=== PATIENT | male | born 1955 | race Caucasian/White ===

== ENCOUNTER 2024-09-16 04:35 | Day surgery (SDC) | payer OTHER ==
[2024-09-14 14:00] VITALS: BMI 19.3
[2024-09-16 08:39] LABS: BASO % 1.1 % (0-2.0); HEMATOCRIT 41.4 % (35.4-49); HEMOGLOBIN 14.2 GM/dL (11.7-16.9); LYMPH % 25.1 % (8-40); MCHC 34.4 g/dl (32.0-35.9); MEAN PLT VOLUME 6.6 fl (7.5-11.1); NEUT % 59.8 % (42.8-82.8); PLATELET COUNT 318 10^3/uL (134-434); RBC 4.45 M/mm3 (4.00-5.60); RDW 14.2 % (11.9-15.9); WHITE BLOOD COUNT 5.5 K/mm3 (4.0-10.0)
[2024-09-16 08:43] LABS: INR 0.99 (0.83-1.09); PROTHROMBIN TIME (PATIENT) 11.4 SEC (9.7-13.0)
[2024-09-16] MEDS ORDERED: FENTANYL CITRATE/PF 50 MCG/ML VIAL ONE ×2 (10:18→11:01)
[2024-09-16] MEDS ORDERED: MIDAZOLAM HCL 2 MG/2 ML SINGLE DOSE VIAL ONE (10:18)
[2024-09-16] MEDS: FENTANYL CITRATE/PF 50 MCG/ML VIAL IVPUSH ONE ×2 (10:48→11:04)
[2024-09-16] MEDS: MIDAZOLAM HCL 2 MG/2 ML SINGLE DOSE VIAL IVPUSH ONE ×2 (10:49→11:04)
[2024-09-16 11:54] VITALS: RESP 16
[2024-09-16 12:53] VITALS: BP 130/70; PULSE 59; TEMP 97.6
== END 2024-09-16 13:11 | disposition home or self-care (01) ==
LOC: JRADIR 04:35
PROVIDERS: ATTEND Internal Medicine Hematology & Oncology
PROC: 02HV33Z Insertion of Infusion Device into Superior Vena Cava, Percutaneous Approach (ICD-10-PCS; principal; 2024-09-16)
DX: C34.90 Malignant neoplasm of unspecified part of unspecified bronchus or lung (principal)
CPT/HCPCS: 36415; 36561; 85025; 85610

== ENCOUNTER 2024-09-19 10:11 | Day surgery (SDC) | payer OTHER ==
[2024-09-19 10:38] LABS: BASO % 0.7 % (0-2.0); EOS % 2.2 % (0-4.5); HEMATOCRIT 41.5 % (35.4-49); HEMOGLOBIN 14.2 GM/dL (11.7-16.9); LYMPH % 19.9 % (8-40); MCH 31.9 pg (25.7-33.7); MCHC 34.2 g/dl (32.0-35.9); MEAN CELL VOLUME 93.2 fl (80-96); MEAN PLT VOLUME 6.9 fl (7.5-11.1); MONO % 10.1 % (3.8-10.2); NEUT % 67.1 % (42.8-82.8); PLATELET COUNT 294 10^3/uL (134-434); RBC 4.45 M/mm3 (4.00-5.60); RDW 14.1 % (11.9-15.9); WHITE BLOOD COUNT 6.8 K/mm3 (4.0-10.0)
[2024-09-19 10:59] LABS: POTASSIUM 4.1 mmol/L (3.5-5.1)
[2024-09-19 11:01] LABS: CALCIUM 9.4 mg/dL (8.5-10.1)
[2024-09-19 11:02] LABS: ALBUMIN 3.6 g/dl (3.4-5.0); BLOOD UREA NITROGEN 26.3 mg/dL (7-18); MAGNESIUM 2.1 mg/dL (1.8-2.4)
[2024-09-19 11:05] LABS: CREATININE 0.6 mg/dL (0.55-1.3)
[2024-09-19 11:07] LABS: BILIRUBIN,TOTAL 0.4 mg/dL (0.2-1); TOT PROT 7.6 g/dl (6.4-8.2)
[2024-09-19] MEDS ORDERED: DEXAMETHASONE SOD PHOSPHATE 20 MG/5 ML VIAL IVPB ONE (11:28)
[2024-09-19] MEDS: LIDOCAINE 2.5%/PRILOCAINE 2.5% 30 GRAM TUBE TP ONE (11:30)
[2024-09-19] MEDS ORDERED: SODIUM CHLORIDE IVPB ONE (11:30)
[2024-09-19] MEDS ORDERED: CARBOPLATIN IVPB ONE (11:30)
[2024-09-19] MEDS: FOSAPREPITANT DIMEGLUMINE 150 MG in SODIUM CHLORIDE 145 ML IVPB ONE (11:52)
[2024-09-19] MEDS: DEXAMETHASONE SODIUM PHOSPHATE 10 MG in DEXTROSE 5%-WATER - 50 ML IVPB ONE (12:29)
[2024-09-19] MEDS: GRANISETRON HCL/PF 1 MG in SODIUM CHLORIDE 50 ML IVPB ONE (12:49)
[2024-09-19] MEDS: ETOPOSIDE 160 MG in SODIUM CHLORIDE 0.9% 500 ML IV ONE (13:06)
[2024-09-19] MEDS ORDERED: PORTA CATH FLUSH 10 ML IVPUSH PRN (16:13)
[2024-09-19 16:22] VITALS: BP 131/72; PULSE 66; RESP 18; TEMP 97.3
== END 2024-09-19 14:00 | disposition home or self-care (01) ==
LOC: JONCCHEMO 10:11 → J7W 10:11 → JONCCHEMO 14:00
PROVIDERS: ATTEND Internal Medicine Hematology & Oncology
DX: Z51.11 Encounter for antineoplastic chemotherapy (principal); C34.90 Malignant neoplasm of unspecified part of unspecified bronchus or lung
CPT/HCPCS: 36415; 80053; 82150; 82533; 82728; 82962; 83540; 83550; 83690; 83735; 84439; 84443; 85025; 96367; 96375; 96413; J1453

== ENCOUNTER 2024-09-19 13:34 | Observation (INO) | payer OTHER ==
[2024-09-19] MEDS ORDERED: ACETAMINOPHEN INJECTION 100 ML ONE (14:36)
[2024-09-19 14:40] LABS: VENOUS BASE EXCESS -0.8 mmol/L (-2-2); VENOUS O2 SATURATION 59.8 % (70-80); VENOUS PCO2 41.9 mmHg (38-52); VENOUS PH 7.381 (7.310-7.410)
[2024-09-19] MEDS: ACETAMINOPHEN 1000 MG/100 ML BAG IVPB ONE (14:40)
[2024-09-19 14:41] LABS: BASO % 0.6 % (0-2.0); EOS % 0.7 % (0-4.5); HEMATOCRIT 38.2 % (35.4-49); HEMOGLOBIN 13.1 GM/dL (11.7-16.9); MCH 32.1 pg (25.7-33.7); MCHC 34.4 g/dl (32.0-35.9); MEAN CELL VOLUME 93.3 fl (80-96); MEAN PLT VOLUME 6.6 fl (7.5-11.1); NEUT % 85.7 % (42.8-82.8); PLATELET COUNT 260 10^3/uL (134-434); RBC 4.09 M/mm3 (4.00-5.60); RDW 14.2 % (11.9-15.9); WHITE BLOOD COUNT 7.4 K/mm3 (4.0-10.0)
[2024-09-19 15:12] LABS: POTASSIUM 4.2 mmol/L (3.5-5.1)
[2024-09-19 15:15] LABS: ALBUMIN 3.3 g/dl (3.4-5.0); BLOOD UREA NITROGEN 26.4 mg/dL (7-18); CALCIUM 8.4 mg/dL (8.5-10.1)
[2024-09-19 15:16] LABS: MAGNESIUM 2.1 mg/dL (1.8-2.4)
[2024-09-19 15:18] LABS: CREATININE 0.6 mg/dL (0.55-1.3)
[2024-09-19 15:20] LABS: BILIRUBIN,TOTAL 0.3 mg/dL (0.2-1); TOT PROT 6.7 g/dl (6.4-8.2)
[2024-09-19] MEDS ORDERED: ACETAMINOPHEN 325 MG TABLET (FP) PO PRN (19:30)
[2024-09-19] MEDS ORDERED: ACETAMINOPHEN 1000 MG/100 ML BAG IVPB PRN (19:35)
[2024-09-20] MEDS: SODIUM CHLORIDE 1,000 ML IV SCH (00:05)
[2024-09-20] MEDS: MIRTAZAPINE 15 MG TABLET (FP) PO SCH (00:56)
[2024-09-20 06:02] VITALS: RESP 18
[2024-09-20] MEDS: SODIUM CHLORIDE 1 GM TABLET PO SCH (06:21)
[2024-09-20 07:51] LABS: INR 1.1 (0.83-1.09); PROTHROMBIN TIME (PATIENT) 12.4 SEC (9.7-13.0)
[2024-09-20 07:54] LABS: ACTIVATED PTT 32.3 SECONDS (25.2-36.5)
[2024-09-20 08:00] LABS: HEMATOCRIT 35.1 % (35.4-49); LYMPH % 9.6 % (8-40); MCH 31.9 pg (25.7-33.7); MCHC 34.3 g/dl (32.0-35.9); MEAN CELL VOLUME 93.1 fl (80-96); MEAN PLT VOLUME 7.4 fl (7.5-11.1); MONO % 2.8 % (3.8-10.2); NEUT % 87.6 % (42.8-82.8); PLATELET COUNT 240 10^3/uL (134-434); RBC 3.77 M/mm3 (4.00-5.60); WHITE BLOOD COUNT 7.9 K/mm3 (4.0-10.0)
[2024-09-20 08:04] LABS: POTASSIUM 4.2 mmol/L (3.5-5.1)
[2024-09-20 08:08] LABS: BLOOD UREA NITROGEN 26.2 mg/dL (7-18); CALCIUM 8.4 mg/dL (8.5-10.1)
[2024-09-20 08:11] LABS: CREATININE 0.5 mg/dL (0.55-1.3)
[2024-09-20] MEDS: PANTOPRAZOLE 40 MG TABLET PO SCH (09:52)
[2024-09-20] MEDS: FOLIC ACID 1 MG TABLET (FP) PO SCH (09:52)
[2024-09-20 13:24] VITALS: BMI 19.2
[2024-09-20] MEDS: CYANOCOBALAMIN (VITAMIN B-12) 100 MCG TABLET PO SCH (17:26)
[2024-09-20] MEDS: PORTA CATH FLUSH 10 ML IVPUSH PRN (17:48)
[2024-09-20] MEDS ORDERED: ACETAMINOPHEN 325 MG TABLET (FP) PO PRN (19:30)
[2024-09-20] MEDS: DOCUSATE SODIUM 100 MG CAPSULE (FP) PO PRN (21:58)
[2024-09-21 08:39] LABS: BASO % 0.6 % (0-2.0); EOS % 1.2 % (0-4.5); HEMATOCRIT 33.6 % (35.4-49); HEMOGLOBIN 11.5 GM/dL (11.7-16.9); LYMPH % 21.3 % (8-40); MCH 31.9 pg (25.7-33.7); MCHC 34.3 g/dl (32.0-35.9); MEAN CELL VOLUME 92.9 fl (80-96); MEAN PLT VOLUME 7.8 fl (7.5-11.1); MONO % 8.5 % (3.8-10.2); NEUT % 68.4 % (42.8-82.8); PLATELET COUNT 231 10^3/uL (134-434); RBC 3.62 M/mm3 (4.00-5.60); RDW 13.6 % (11.9-15.9); WHITE BLOOD COUNT 8.7 K/mm3 (4.0-10.0)
[2024-09-21 09:06] LABS: POTASSIUM 4.2 mmol/L (3.5-5.1)
[2024-09-21 09:21] LABS: CALCIUM 8.6 mg/dL (8.5-10.1)
[2024-09-21 09:22] LABS: BILIRUBIN,TOTAL 0.3 mg/dL (0.2-1); CREATININE 0.4 mg/dL (0.55-1.3)
[2024-09-21] MEDS: MULTIVITAMINS THER W-MINERALS COMBO TABLET (FP) PO SCH (09:58)
[2024-09-21 15:11] VITALS: BP 125/69; PULSE 75; TEMP 97.5
== END 2024-09-21 16:12 | disposition home or self-care (01) ==
LOC: JER 13:34 → UNDOADMOB 16:52 → INTOOBSV 16:52 → JERBED 16:52 → J4W 20:21
PROVIDERS: ADMIT Internal Medicine; ATTEND Internal Medicine
PROC: 3E033NZ Introduction of Analgesics, Hypnotics, Sedatives into Peripheral Vein, Percutaneous Approach (ICD-10-PCS; principal; 2024-09-19)
PROC: 3E033GC Introduction of Other Therapeutic Substance into Peripheral Vein, Percutaneous Approach (ICD-10-PCS; 2024-09-19)
DX: R07.9 Chest pain, unspecified (principal); E87.1 Hypo-osmolality and hyponatremia; F39 Unspecified mood [affective] disorder; J44.9 Chronic obstructive pulmonary disease, unspecified; C34.90 Malignant neoplasm of unspecified part of unspecified bronchus or lung; Z79.899 Other long term (current) drug therapy; A31.0 Pulmonary mycobacterial infection; F17.210 Nicotine dependence, cigarettes, uncomplicated
CPT/HCPCS: 36415; 71045-TC-FY; 80048; 80053; 82803; 83605; 83690; 83735; 83880; 84443; 84484; 85025; 85610; 85730; 93306-TC; 93308; 96374; 96375; 99285-25; G0378; J0131

== ENCOUNTER 2024-10-07 10:45 | Day surgery (SDC) | payer MEDICARE, OTHER ==
[2024-10-07] MEDS: PEGFILGRASTIM-CBQV (UDENYCA) 6 MG/0.6 ML SYRINGE SQ ONE (11:23)
[2024-10-07 16:45] VITALS: BP 112/64; PULSE 72; RESP 18; TEMP 98.1
== END 2024-10-07 11:50 | disposition home or self-care (01) ==
LOC: JONCCHEMO 10:45 → J7W 10:47 → JONCCHEMO 11:50
PROVIDERS: ATTEND Internal Medicine Hematology & Oncology
PROC: 3E013GC Introduction of Other Therapeutic Substance into Subcutaneous Tissue, Percutaneous Approach (ICD-10-PCS; principal; 2024-10-07)
DX: E87.1 Hypo-osmolality and hyponatremia (principal); C34.90 Malignant neoplasm of unspecified part of unspecified bronchus or lung
CPT/HCPCS: 96372; Q5111

== ENCOUNTER 2024-10-25 09:50 | Day surgery (SDC) | payer MEDICARE, OTHER ==
[2024-10-25 10:16] LABS: BASO % 0.7 % (0-2.0); HEMATOCRIT 40.3 % (35.4-49); HEMOGLOBIN 13.4 GM/dL (11.7-16.9); LYMPH % 16.3 % (8-40); MCH 31.1 pg (25.7-33.7); MCHC 33.1 g/dl (32.0-35.9); MEAN CELL VOLUME 93.9 fl (80-96); MEAN PLT VOLUME 7.5 fl (7.5-11.1); MONO % 12.1 % (3.8-10.2); NEUT % 69.9 % (42.8-82.8); PLATELET COUNT 194 10^3/uL (134-434); RBC 4.29 M/mm3 (4.00-5.60); RDW 14.7 % (11.9-15.9); WHITE BLOOD COUNT 6.6 K/mm3 (4.0-10.0)
[2024-10-25 11:10] LABS: CALCIUM 9.5 mg/dL (8.5-10.1)
[2024-10-25 11:11] LABS: ALBUMIN 3.5 g/dl (3.4-5.0)
[2024-10-25 11:14] LABS: CREATININE 0.7 mg/dL (0.55-1.3)
[2024-10-25 11:16] LABS: BILIRUBIN,TOTAL 0.3 mg/dL (0.2-1); TOT PROT 7.2 g/dl (6.4-8.2)
[2024-10-25] MEDS: FAMOTIDINE 20 MG/50 ML IVPB 20 MG/50 ML MG IVPB ONE (11:32)
[2024-10-25] MEDS: DEXAMETHASONE SODIUM PHOSPHATE 10 MG, DIPHENHYDRAMINE 25 MG, ONDANSETRON INJECTION 8 MG... IVPB ONE (12:05)
[2024-10-25] MEDS: SODIUM CHLORIDE IV ONE ×2 (12:50→13:31)
[2024-10-25] MEDS: CARBOPLATIN IV ONE (12:50)
[2024-10-25] MEDS: ETOPOSIDE IV ONE (13:31)
[2024-10-25 18:27] VITALS: BP 111/60; PULSE 76; RESP 20; TEMP 98.2
== END 2024-10-25 16:00 | disposition home or self-care (01) ==
LOC: JONCCHEMO 09:50 → J7W 09:52 → JONCCHEMO 16:00
PROVIDERS: ATTEND Internal Medicine Hematology & Oncology
DX: Z51.11 Encounter for antineoplastic chemotherapy (principal); C34.90 Malignant neoplasm of unspecified part of unspecified bronchus or lung
CPT/HCPCS: 36415; 80053; 82150; 82533; 83690; 83735; 84439; 84443; 85025; 96367; 96413; 96415; 96417; J2405

== ENCOUNTER 2024-10-26 08:47 | Day surgery (SDC) | payer MEDICARE, OTHER ==
[2024-10-26] MEDS: ONDANSETRON INJECTION 8 MG, DIPHENHYDRAMINE 25 MG in SODIUM CHLORIDE 100 ML IVPB ONE (09:50)
[2024-10-26] MEDS: FAMOTIDINE 20 MG/50 ML IVPB 20 MG/50 ML MG IVPB ONE (10:10)
[2024-10-26] MEDS: ATEZOLIZUMAB 1,200 MG in SODIUM CHLORIDE 250 ML IV ONE (11:06)
[2024-10-26] MEDS: ETOPOSIDE IV ONE (12:44)
[2024-10-26] MEDS: SODIUM CHLORIDE IV ONE (12:44)
[2024-10-26 16:48] VITALS: BP 119/72; PULSE 61; RESP 20; TEMP 97.7
== END 2024-10-26 15:10 | disposition home or self-care (01) ==
LOC: JONCCHEMO 08:47 → J7W 08:48 → JONCCHEMO 15:10
PROVIDERS: ATTEND Internal Medicine Hematology & Oncology
DX: Z51.11 Encounter for antineoplastic chemotherapy (principal); C34.90 Malignant neoplasm of unspecified part of unspecified bronchus or lung
CPT/HCPCS: 96367; 96375; 96413; 96415; 96417; J2405; J9022

== ENCOUNTER 2024-10-27 08:50 | Day surgery (SDC) | payer MEDICARE, OTHER ==
[2024-10-27] MEDS: ONDANSETRON INJECTION 8 MG, DIPHENHYDRAMINE 25 MG in SODIUM CHLORIDE 100 ML IVPB ONE (09:15)
[2024-10-27] MEDS: FAMOTIDINE 20 MG/50 ML IVPB 20 MG/50 ML MG IVPB ONE (09:51)
[2024-10-27] MEDS: ETOPOSIDE IV ONE (10:28)
[2024-10-27] MEDS: SODIUM CHLORIDE IV ONE (10:28)
[2024-10-27 12:53] VITALS: RESP 20; TEMP 97.8
[2024-10-27 15:57] VITALS: BP 96/49; PULSE 65
== END 2024-10-27 12:45 | disposition home or self-care (01) ==
LOC: JONCCHEMO 08:50 → J7W 08:50 → JONCCHEMO 12:45
PROVIDERS: ATTEND Internal Medicine Hematology & Oncology
DX: Z51.11 Encounter for antineoplastic chemotherapy (principal); C34.90 Malignant neoplasm of unspecified part of unspecified bronchus or lung
CPT/HCPCS: 96367; 96413; 96415; J2405

== ENCOUNTER 2024-10-28 09:46 | Day surgery (SDC) | payer MEDICARE, OTHER ==
[2024-10-28] MEDS: PEGFILGRASTIM-CBQV (UDENYCA) 6 MG/0.6 ML SYRINGE SQ ONE (09:54)
[2024-10-28 15:43] VITALS: BP 102/48; PULSE 71; RESP 20; TEMP 97.6
== END 2024-10-28 10:10 | disposition home or self-care (01) ==
LOC: J7W 09:46 → JONCCHEMO 09:46
PROVIDERS: ATTEND Internal Medicine Hematology & Oncology
PROC: 3E013GC Introduction of Other Therapeutic Substance into Subcutaneous Tissue, Percutaneous Approach (ICD-10-PCS; principal; 2024-10-28)
DX: C34.90 Malignant neoplasm of unspecified part of unspecified bronchus or lung (principal); Z76.89 Persons encountering health services in other specified circumstances
CPT/HCPCS: 96372; Q5111

== ENCOUNTER 2024-11-21 08:53 | Day surgery (SDC) | payer MEDICARE, OTHER ==
[2024-11-21 09:15] LABS: BASO % 0.6 % (0-2.0); EOS % 2.1 % (0-4.5); HEMATOCRIT 36.2 % (35.4-49); HEMOGLOBIN 12.2 GM/dL (11.7-16.9); LYMPH % 19.1 % (8-40); MCH 32.2 pg (25.7-33.7); MCHC 33.7 g/dl (32.0-35.9); MEAN CELL VOLUME 95.4 fl (80-96); MEAN PLT VOLUME 7.4 fl (7.5-11.1); MONO % 11.7 % (3.8-10.2); NEUT % 66.5 % (42.8-82.8); PLATELET COUNT 288 10^3/uL (134-434); RBC 3.79 M/mm3 (4.00-5.60); WHITE BLOOD COUNT 8.9 K/mm3 (4.0-10.0)
[2024-11-21 09:51] LABS: POTASSIUM 3.9 mmol/L (3.5-5.1)
[2024-11-21 09:53] LABS: BLOOD UREA NITROGEN 20.9 mg/dL (7-18); CALCIUM 9.4 mg/dL (8.5-10.1)
[2024-11-21 09:54] LABS: ALBUMIN 3.2 g/dl (3.4-5.0)
[2024-11-21 09:55] LABS: MAGNESIUM 1.9 mg/dL (1.8-2.4)
[2024-11-21 09:57] LABS: CREATININE 0.6 mg/dL (0.55-1.3)
[2024-11-21 09:58] LABS: BILIRUBIN,TOTAL 0.5 mg/dL (0.2-1)
[2024-11-21] MEDS: DEXAMETHASONE SODIUM PHOSPHATE 10 MG, DIPHENHYDRAMINE 25 MG, ONDANSETRON INJECTION 8 MG... IVPB ONE (10:37)
[2024-11-21] MEDS: FAMOTIDINE 20 MG/50 ML IVPB 20 MG/50 ML MG IVPB ONE (11:07)
[2024-11-21] MEDS: SODIUM CHLORIDE IV ONE ×2 (11:53→13:56)
[2024-11-21] MEDS: ETOPOSIDE IV ONE (11:53)
[2024-11-21] MEDS: CARBOPLATIN IV ONE (13:56)
[2024-11-21] MEDS: PORTA CATH FLUSH 10 ML IVPUSH PRN (14:40)
[2024-11-21 17:53] VITALS: RESP 20; TEMP 97.7
[2024-11-21 17:58] VITALS: BP 90/53; PULSE 67
== END 2024-11-21 14:45 | disposition home or self-care (01) ==
LOC: JONCCHEMO 08:53 → J7W 08:55 → JONCCHEMO 14:45
PROVIDERS: ATTEND Internal Medicine Hematology & Oncology
DX: Z51.11 Encounter for antineoplastic chemotherapy (principal); C34.90 Malignant neoplasm of unspecified part of unspecified bronchus or lung
CPT/HCPCS: 36415; 80053; 82150; 82533; 83690; 83735; 84439; 84443; 85025; 96367; 96413; 96415; 96417; J2405

== ENCOUNTER 2024-11-22 08:30 | Day surgery (SDC) | payer MEDICARE, OTHER ==
[2024-11-22] MEDS: FAMOTIDINE 20 MG/50 ML IVPB 20 MG/50 ML MG IVPB ONE (09:01)
[2024-11-22] MEDS: ONDANSETRON INJECTION 8 MG, DIPHENHYDRAMINE 25 MG in SODIUM CHLORIDE 100 ML IVPB ONE (09:33)
[2024-11-22] MEDS: ATEZOLIZUMAB 1,200 MG in SODIUM CHLORIDE 250 ML IV ONE (10:07)
[2024-11-22] MEDS: ETOPOSIDE IV ONE (11:27)
[2024-11-22] MEDS: SODIUM CHLORIDE IV ONE (11:27)
[2024-11-22] MEDS: PORTA CATH FLUSH 10 ML IVPUSH PRN (13:55)
[2024-11-22 15:21] VITALS: BP 91/55; PULSE 68; RESP 16; TEMP 97.7
[2024-11-24] MEDS ORDERED: ONDANSETRON INJECTION 8 MG, DIPHENHYDRAMINE 25 MG in SODIUM CHLORIDE 100 ML IVPB ONE (09:00)
[2024-11-24] MEDS ORDERED: SODIUM CHLORIDE 0.9% IV ONE (09:30)
[2024-11-24] MEDS ORDERED: ETOPOSIDE IV ONE (09:30)
== END 2024-11-22 14:00 | disposition home or self-care (01) ==
LOC: JONCCHEMO 08:30 → J7W 08:32 → JONCCHEMO 14:00
PROVIDERS: ATTEND Internal Medicine Hematology & Oncology
DX: Z51.11 Encounter for antineoplastic chemotherapy (principal); C34.90 Malignant neoplasm of unspecified part of unspecified bronchus or lung
CPT/HCPCS: 96367; 96413; 96415; 96417; J2405; J9022

== ENCOUNTER 2024-11-24 08:13 | Day surgery (SDC) | payer MEDICARE, OTHER ==
[2024-11-24] MEDS: ONDANSETRON INJECTION 8 MG, DIPHENHYDRAMINE 25 MG in SODIUM CHLORIDE 100 ML IVPB ONE (09:10)
[2024-11-24] MEDS: FAMOTIDINE 20 MG/50 ML IVPB 20 MG/50 ML MG IVPB ONE (09:40)
[2024-11-24] MEDS: SODIUM CHLORIDE 0.9% IV ONE (10:13)
[2024-11-24] MEDS: ETOPOSIDE IV ONE (10:13)
[2024-11-24] MEDS: PORTA CATH FLUSH 10 ML IVPUSH PRN (12:19)
[2024-11-24 16:28] VITALS: BP 95/58; PULSE 76; RESP 20; TEMP 98
== END 2024-11-24 12:30 | disposition home or self-care (01) ==
LOC: JONCCHEMO 08:13 → J7W 08:14 → JONCCHEMO 12:30
PROVIDERS: ATTEND Internal Medicine Hematology & Oncology
PROC: 3E04305 Introduction of Other Antineoplastic into Central Vein, Percutaneous Approach (ICD-10-PCS; principal; 2024-11-24)
PROC: 3E043GC Introduction of Other Therapeutic Substance into Central Vein, Percutaneous Approach (ICD-10-PCS; 2024-11-24)
DX: Z51.11 Encounter for antineoplastic chemotherapy (principal); C34.90 Malignant neoplasm of unspecified part of unspecified bronchus or lung
CPT/HCPCS: 96365; 96366; 96413; 96415; J2405

== ENCOUNTER 2024-11-25 08:19 | Day surgery (SDC) | payer MEDICARE, OTHER ==
[2024-11-25] MEDS: PEGFILGRASTIM-CBQV (UDENYCA) 6 MG/0.6 ML SYRINGE SQ ONE (09:03)
[2024-11-25 14:36] VITALS: BP 96/53; PULSE 69; RESP 16; TEMP 97.8
== END 2024-11-25 09:15 | disposition home or self-care (01) ==
LOC: JONCCHEMO 08:19 → J7W 08:20 → JONCCHEMO 09:15
PROVIDERS: ATTEND Internal Medicine Hematology & Oncology
PROC: 3E013GC Introduction of Other Therapeutic Substance into Subcutaneous Tissue, Percutaneous Approach (ICD-10-PCS; principal; 2024-11-25)
DX: C34.80 Malignant neoplasm of overlapping sites of unspecified bronchus and lung (principal); Z76.89 Persons encountering health services in other specified circumstances
CPT/HCPCS: 96372; Q5111

== ENCOUNTER 2024-12-14 08:26 | Day surgery (SDC) | payer MEDICARE, OTHER ==
[2024-12-14] MEDS: FAMOTIDINE 20 MG/50 ML IVPB 20 MG/50 ML MG IVPB ONE (08:42)
[2024-12-14] MEDS: ONDANSETRON INJECTION 8 MG, DIPHENHYDRAMINE 25 MG in SODIUM CHLORIDE 100 ML IVPB ONE ×2 (10:24)
[2024-12-14] MEDS: ATEZOLIZUMAB 1,200 MG in SODIUM CHLORIDE 250 ML IV ONE (11:15)
[2024-12-14] MEDS: ETOPOSIDE IV ONE (12:23)
[2024-12-14] MEDS: SODIUM CHLORIDE 0.9% IV ONE (12:23)
[2024-12-14] MEDS: PORTA CATH FLUSH 10 ML IVPUSH PRN (14:30)
[2024-12-14 14:34] VITALS: PULSE 62; RESP 18; TEMP 97.8
[2024-12-14 14:41] VITALS: BP 114/64
== END 2024-12-14 15:00 | disposition home or self-care (01) ==
LOC: JONCCHEMO 08:26 → J7W 08:29 → JONCCHEMO 15:00
PROVIDERS: ATTEND Internal Medicine Hematology & Oncology
PROC: 3E04305 Introduction of Other Antineoplastic into Central Vein, Percutaneous Approach (ICD-10-PCS; principal; 2024-12-14)
PROC: 3E043GC Introduction of Other Therapeutic Substance into Central Vein, Percutaneous Approach (ICD-10-PCS; 2024-12-14)
DX: Z51.11 Encounter for antineoplastic chemotherapy (principal); C34.80 Malignant neoplasm of overlapping sites of unspecified bronchus and lung
CPT/HCPCS: 96367; 96368; 96413; 96415; 96417; J2405; J9022

== ENCOUNTER 2024-12-15 08:19 | Day surgery (SDC) | payer MEDICARE, OTHER ==
[2024-12-15] MEDS: SODIUM CHLORIDE 0.9% 500 ML INFUS.BAG IV ONE (08:30)
[2024-12-15] MEDS: ONDANSETRON INJECTION 8 MG, DIPHENHYDRAMINE 25 MG in SODIUM CHLORIDE 100 ML IVPB ONE (09:26)
[2024-12-15] MEDS: FAMOTIDINE 20 MG/50 ML IVPB 20 MG/50 ML MG IVPB ONE (10:10)
[2024-12-15] MEDS: SODIUM CHLORIDE 0.9% IV ONE (10:31)
[2024-12-15] MEDS: ETOPOSIDE IV ONE (10:31)
[2024-12-15 16:13] VITALS: BP 89/55; PULSE 66; RESP 20; TEMP 97.5
[2024-12-15] MEDS ORDERED: PORTA CATH FLUSH 10 ML IVPUSH PRN (16:13)
== END 2024-12-15 13:00 | disposition home or self-care (01) ==
LOC: J7W 08:19 → JONCCHEMO 08:19
PROVIDERS: ATTEND Internal Medicine Hematology & Oncology
PROC: 3E04305 Introduction of Other Antineoplastic into Central Vein, Percutaneous Approach (ICD-10-PCS; principal; 2024-12-15)
PROC: 3E0437Z Introduction of Electrolytic and Water Balance Substance into Central Vein, Percutaneous Approach (ICD-10-PCS; 2024-12-15)
PROC: 3E043GC Introduction of Other Therapeutic Substance into Central Vein, Percutaneous Approach (ICD-10-PCS; 2024-12-15)
DX: Z51.11 Encounter for antineoplastic chemotherapy (principal); C34.80 Malignant neoplasm of overlapping sites of unspecified bronchus and lung
CPT/HCPCS: 96361; 96367; 96368; 96413; 96415; J2405

== ENCOUNTER 2025-04-24 09:37 | Day surgery (SDC) | payer MEDICARE, OTHER ==
[2025-04-24 10:06] LABS: ABSOLUTE IMMATURE GRANULOCYTES 0.08 x10^3/uL (0.0-0.031); BASOPHILS # 0.03 x10^3/uL (0.01-0.08); EOSINOPHIL % 0.1 % (0.8-7.0); EOSINOPHILS # 0.01 x10^3/uL (0.04-0.54); HEMATOCRIT 41.4 % (40.1-51.0); HEMOGLOBIN 13.4 g/dL (13.7-17.5); MCHC 32.4 g/dl (32.3-36.5); MEAN CELL VOLUME 94.3 fl (79.0-92.2); MEAN PLT VOLUME 8.1 fl (9.4-12.4); MONOCYTE # 0.89 x10^3/uL (0.30-0.82); MONOCYTE % 12.2 % (5.3-12.2); PLATELET COUNT 341 x10^3/uL (163-337)
[2025-04-24] MEDS: SODIUM CHLORIDE 250 ML IV ONE (10:12)
[2025-04-24 10:41] LABS: POTASSIUM 3.6 mmol/L (3.5-5.1)
[2025-04-24 10:44] LABS: CALCIUM 9.5 mg/dL (8.5-10.1)
[2025-04-24 10:45] LABS: ALBUMIN 3.8 g/dl (3.4-5.0); BLOOD UREA NITROGEN 12.3 mg/dL (7-18); MAGNESIUM 2.4 mg/dL (1.8-2.4)
[2025-04-24 10:49] LABS: BILIRUBIN,TOTAL 0.4 mg/dL (0.2-1)
[2025-04-24 10:50] LABS: TOT PROT 7.2 g/dl (6.4-8.2)
[2025-04-24] MEDS: PALONOSETRON HCL 0.25 MG/5 ML VIAL IVPUSH ONE (11:04)
[2025-04-24] MEDS: DEXAMETHASONE SODIUM PHOSPHATE 10 MG in SODIUM CHLORIDE 50 ML IVPB ONE (11:10)
[2025-04-24] MEDS: PORTA CATH FLUSH 10 ML IVPUSH PRN (12:55)
[2025-04-24 14:20] VITALS: RESP 20; TEMP 98.3
[2025-04-24 14:26] VITALS: BP 112/65; PULSE 86
== END 2025-04-24 13:05 | disposition home or self-care (01) ==
LOC: JONCCHEMO 09:37
PROVIDERS: ATTEND Internal Medicine Hematology & Oncology
DX: Z51.11 Encounter for antineoplastic chemotherapy (principal); C34.90 Malignant neoplasm of unspecified part of unspecified bronchus or lung
CPT/HCPCS: 36415; 80053; 82378; 82550; 83735; 85025; 96375; 96413; J9223